=== PATIENT | male | born 1995 | race African-American/Black ===

== ENCOUNTER 2024-06-16 10:55 | Emergency (ER) | payer SELFPAY ==
--- NOTE | 2024-06-16 11:15 | EDPHYS ---
Physician Documentation [facility] Name: Eren Miller Age: 29 yrs Sex: Male : 1995 Arrival Date: 06/16/2024 Time: 10:55 Bed IW10 Private MD: ED Physician Goyo Solorio HPI: 06/16 11:16 This 29 yrs old Black Male presents to ER via Ambulatory with complaints of Ear Pain. ec2 11:16 Patient arrives today for left ear pain. Patient with increasing left ear swelling ec2 within the canal as well as pain with Q-tip insertion. No fevers or chills, no nausea or vomiting, no medication allergies.. Historical: - Allergies: 11:13 No Known Allergies; db - PMHx: 11:13 None; db - Immunization history:: Adult Immunizations unknown. - Infectious Disease History:: Denies. - Social history:: Smoking status: Patient denies any tobacco usage or history of. ROS: 11:16 Constitutional: as per hpi ec2 Exam: 11:16 Constitutional: GEN: NAD Head: atraumatic Eyes: EOMI Ears: Left ear with otitis ec2 externa, fluid behind the panic membrane CV: regular rate LUNGS: no respiratory distress ABD: non-distended SKIN: no evidence of rashes MSK: no evidence of trauma Vital Signs: 11:11 BP 133 / 88; Pulse 81; Resp 16; Temp 98.8(O); Pulse Ox 99% ; Weight 99.79 kg; Height 5 db ft. 0 in. ; 11:11 Body Mass Index 42.97 (99.79 kg, 152.4 cm) db MDM: 11:14 Patient medically screened. ec2 11:16 Data reviewed: vital signs. ED course: Patient arrives today for left ear pain. ec2 Examination remarkable for ear findings as above. Will treat for otitis media and externa. Return precautions given.. Administered Medications: No medications were administered Disposition Summary: 06/16/24 11:14 Discharge Ordered Notes: Location: Home ec2 Condition: Stable ec2 Diagnosis - Acute suppurative otitis media ec2 - Other otitis externa, left ear ec2 Followup: ec2 - With: Private Physician - When: - Reason: Re-evaluation by your physician Discharge Instructions: - Discharge Summary Sheet ec2 - Otitis Media, Adult, Soml-rb-[id number] ec2 Forms: - Medication Reconciliation Form ec2 - Antibiotic Education ec2 - Prescription Opioid Use ec2 - Patient Portal Instructions ec2 - Leadership Thank You Letter ec2 Prescriptions: - ofloxacin 0.3 % Otic drops - instill 5 drop OTIC route daily for 7 days; 7 drop; Refills: 0, Product ec2 Selection Permitted - Augmentin 875-125 mg Oral tablet - take 1 tablet ORAL route every 12 hours for 7 days; 14 tablet; Refills: 0, ec2 Product Selection Permitted Signatures: Joleen Chester RN RN db Goyo Solorio MD MD ec2
--- NOTE | 2024-06-16 11:15 | ER ---
Nurse's Notes [facility] Name: Eren Miller Age: 29 yrs Sex: Male : 1995 Arrival Date: 06/16/2024 Time: 10:55 Bed IW10 Private MD: Diagnosis: Acute suppurative otitis media;Other otitis externa, left ear Presentation: 06/16 11:11 Chief complaint: Patient states: LEFT EAR PAIN STARTED HURTING ON SATURDAY TODAY EAR IS db "SWOLLEN SHUT". Coronavirus screen: Client denies travel out of the [place] in the last 14 days. At this time, the client does not indicate any symptoms associated with coronavirus-19. Ebola Screen: Patient negative for fever greater than or equal to 101.5 degrees Fahrenheit, and additional compatible Ebola Virus Disease symptoms Patient denies exposure to infectious person. Patient denies travel to an Ebola-affected area in the 21 days before illness onset. No symptoms or risks identified at this time. Initial Sepsis Screen: Does the patient meet any 2 criteria? No. Patient's initial sepsis screen is negative. Does the patient have a suspected source of infection? No. Patient's initial sepsis screen is negative. Risk Assessment: Do you want to hurt yourself or someone else? Patient reports no desire to harm self or others. Onset of symptoms was June 13, 2024. 11:11 Method Of Arrival: Ambulatory db 11:11 Acuity: BRANDEN 4 db Triage Assessment: 11:13 General: Appears in no apparent distress. comfortable, Behavior is calm, cooperative. db Pain: Complains of pain in left ear. EENT: Tympanic membrane reddened on left ear. Respiratory: Airway is patent Respiratory effort is even, unlabored, Respiratory pattern is regular, symmetrical. Historical: - Allergies: 11:13 No Known Allergies; db - PMHx: 11:13 None; db - Immunization history:: Adult Immunizations unknown. - Infectious Disease History:: Denies. - Social history:: Smoking status: Patient denies any tobacco usage or history of. Screenin:26 [facility] ED Fall Risk Assessment (Adult) History of falling in the last 3 months, db including since admission No falls in past 3 months (0 pts) Confusion or Disorientation No (0 pts) Intoxicated or Sedated No (0 pts) Impaired Gait No (0 pts) Mobility Assist Device Used No (0 pt) Altered Elimination No (0 pt) Score/Fall Risk Level 0 - 2 = Low Risk Oriented to surroundings, Maintained a safe environment. Abuse screen: Denies threats or abuse. Denies injuries from another. Nutritional screening: No deficits noted. Tuberculosis screening: No symptoms or risk factors identified. Assessment: 11:26 Reassessment: Patient appears in no apparent distress at this time. Patient and/or db family updated on plan of care and expected duration. Pain level reassessed. Patient is alert, oriented x 3, equal unlabored respirations, skin warm/dry/pink. General: Appears in no apparent distress. comfortable, Behavior is calm, cooperative. Vital Signs: 11:11 BP 133 / 88; Pulse 81; Resp 16; Temp 98.8(O); Pulse Ox 99% ; Weight 99.79 kg; Height 5 db ft. 0 in. ; 11:11 Body Mass Index 42.97 (99.79 kg, 152.4 cm) db ED Course: 10:57 Patient arrived in ED. mr 10:57 Goyo Solorio MD is Attending Physician. ec2 11:13 Triage completed. db 11:13 Arm band placed on Patient placed in waiting room. db 11:26 Patient has correct armband on for positive identification. Bed in low position. Call db light in reach. Side rails up X 1. Provided Education on: DISCHARGE. Warm blanket given. 11:26 No provider procedures requiring assistance completed. Patient did not have IV access db during this emergency room visit. Administered Medications: No medications were administered Medication: 11: VIS not applicable for this client. db Outcome: 11:14 Discharge ordered by . ec2 11:26 Discharged to home ambulatory, db 11:26 Condition: stable 11:26 Discharge instructions given to patient, Instructed on discharge instructions, follow up and referral plans. Prescriptions given X 2, 11:27 Patient left the ED. db Signatures: Snehal Sosa, Joleen Lazo, REJI RN db Goyo Solorio MD MD ec2
[2024-06-16 11:31] VITALS: BP 133/88; TEMP 98.8; O2SAT 99
== END 2024-06-16 11:27 | disposition home or self-care (01) ==
LOC: ER 10:55
DX: H66.002 Acute suppurative otitis media without spontaneous rupture of ear drum, left ear (principal); H60.8X2 Other otitis externa, left ear

== ENCOUNTER 2024-09-23 08:03 | Emergency (ER) | payer SELFPAY ==
[2024-09-23] MEDS ORDERED: LEVALBUTEROL 1.25 MG/3 ML NEB ONE (08:27)
[2024-09-23] MEDS ORDERED: METHYLPREDNISOLONE 125 MG INJ ONE (08:27)
--- NOTE | 2024-09-23 10:06 | RAD REPORT ---
EXAMINATION: ONE VIEW CHEST XR CLINICAL INDICATION: Male, 29 years old.,Cough;Dyspnea TECHNIQUE: Frontal chest projection is submitted. Examination is limited by patient positioning and t echnique. COMPARISON: No prior exam. FINDINGS: The lungs are well inflated and clear. No pneumothorax or sizable effusion. The heart is normal in s ize. Mediastinal contours are unremarkable. IMPRESSION: No acute intrathoracic abnormalities.
--- NOTE | 2024-09-23 10:30 | EDPHYS ---
Physician Documentation [facility] Name: Eren Miller Age: 29 yrs Sex: Female : 1995 Arrival Date: 09/23/2024 Time: 08:03 Bed 14 Private MD: ED Physician Александр Williamson HPI: 09/23 09:28 This 29 yrs old Black Male presents to ER via Ambulatory with complaints of Shortness rn Of Breath. 10:26 The patient has shortness of breath at rest, with light activity. Onset: The rn symptoms/episode began/occurred yesterday. Duration: The symptoms are intermittent. The patient's shortness of breath is aggravated by coughing, light activity. Severity of symptoms: At their worst the symptoms were mild in the emergency department the symptoms are unchanged. The patient has experienced similar episodes in the past. Patient reports multiple family members sick at home with cough and congestion as well as fever and chills. She started to get sick 2 days ago and reports mild shortness of breath. Patient reports history of asthma.. Historical: - Allergies: 08:13 Apple; ll1 08:13 oatmeal; ll1 - PMHx: 08:13 Asthma; ll1 - PSHx: 08:13 section; Cholecystectomy; ll1 - Immunization history:: Adult Immunizations up to date. - Infectious Disease History:: Denies. - Social history:: Smoking status: Patient denies any tobacco usage or history of. - Family history:: not pertinent. - Hospitalizations: : No recent hospitalization is reported. ROS: 10:26 Constitutional: Positive for subjective fever and chills ENT: Positive for nasal rn congestion Neck: Negative for injury, pain, and swelling, Cardiovascular: Negative for chest pain, palpitations, and edema, Respiratory: Positive for cough and mild shortness of breath Abdomen/GI: Negative for abdominal pain, nausea, vomiting, diarrhea, and constipation, MS/Extremity: Negative for injury and deformity, Skin: Negative for injury, rash, and discoloration, Neuro: Negative for headache, weakness, numbness, tingling, and seizure, Exam: 10:26 Constitutional: This is a well developed, well nourished patient who is awake, alert, rn and in no acute distress. Head/Face: Normocephalic, atraumatic. ENT: No stridor Cardiovascular: Regular rate and rhythm. No pulse deficits. Respiratory: No retractions. Faint upper lobe wheezing. Vital Signs: 08:14 BP 117 / 90; Pulse 92; Resp 18; Temp 97.3; Pulse Ox 99% on R/A; Weight 99.79 kg; Height ll1 5 ft. 0 in. ; Pain 8/10; 10:20 BP 122 / 80; Pulse 80; Resp 17; Pulse Ox 99% on R/A; rs5 08:14 Body Mass Index 42.97 (99.79 kg, 152.4 cm) ll1 08:14 Pain Scale: Adult ll1 MDM: 08:07 Medical Screening Exam initiated rn 10:26 Differential diagnosis: asthma, pneumonia, Pneumothorax pulmonary edema. Data reviewed: rn vital signs, nurses notes, lab test result(s), radiologic studies, plain films, and as a result, I will discharge patient. Counseling: I had a detailed discussion with the patient and/or guardian regarding the historical points, exam findings, and any diagnostic results supporting the discharge/admit diagnosis, lab results, radiology results, the need for outpatient follow up, to return to the emergency department if symptoms worsen or persist or if there are any questions or concerns that arise at home. Response to treatment: the patient's symptoms have markedly improved after treatment, and as a result, I will discharge patient. Special discussion: I discussed with the patient/guardian in detail that at this point there is no indication for admission to the hospital. It is understood, however, that if the symptoms persist or worsen the patient needs to return immediately for re-evaluation. 09/23 08:18 Order name: Flu; Complete Time: rn 09/23 08:18 Order name: RSV; Complete Time: rn 09/23 08:18 Order name: XRAY Chest (1 view); Complete Time: 10:15 rn Administered Medications: 08:30 Drug: MethylPREDNISolone Sodium Succinate IM 125 mg IM once Route: IM; Site: left rs5 deltoid; 09:00 Follow up: Response: No adverse reaction rs5 08:30 Drug: Levalbuterol Inhalation 1.25 mg Inhalation once Route: Inhalation; rs5 09:00 Follow up: Response: No adverse reaction rs5 Disposition Summary: 09/23/24 10:29 Discharge Ordered Notes: Location: Home rn Problem: new rn Symptoms: have improved rn Condition: Stable rn Diagnosis - Acute upper respiratory infection, unspecified rn - Mild persistent asthma with (acute) exacerbation rn Followup: rn - With: Private Physician - When: As needed - Reason: Recheck today's complaints, Re-evaluation by your physician Discharge Instructions: - Discharge Summary Sheet rn - Asthma, Adult rn - Upper Respiratory Infection, Adult rn Forms: - Medication Reconciliation Form rn - Antibiotic electrical engineering intern - Prescription Opioid Use rn - Patient Portal Instructions rn - Leadership Thank You Letter rn Prescriptions: - Prednisone 20 mg Oral Tablet - take 3 tablets ORAL route once daily for 5 days; 15 tablet; Refills: 0, Product rn Selection Permitted Signatures: Dispatcher [employer] EDMS Александр Williamson MD MD rn Lewis, Lynsay RN RN ll1 Miguel Pelaez RN RN rs5 Corrections: (The following items were deleted from the chart) 08:18 08:18 Influenza Screen (A \T\ B)+BA.LAB.BRZ ordered. EDMS EDMS 08:18 08:18 Respiratory Syncytial Virus Ag+BA.LAB.BRZ ordered. EDMS EDMS 08:18 08:18 Chest Single View+RAD.RAD.BRZ ordered. EDMS EDMS
--- NOTE | 2024-09-23 10:30 | ER ---
Nurse's Notes [facility] Name: Eren Miller Age: 29 yrs Sex: Female : 1995 Arrival Date: 09/23/2024 Time: 08:03 Bed 14 Private MD: Diagnosis: Acute upper respiratory infection, unspecified;Mild persistent asthma with (acute) exacerbation Presentation: 09/23 08:14 Chief complaint: Patient states: Cough, SOB, R sided neck pain for 3 days. tested ll1 positive for RSV. Coronavirus screen: Client denies travel out of the [place] in the last 14 days. congestion, cough unrelated to allergies, difficulty breathing, fatigue, headache, muscle pain, Client presents with at least one sign or symptom that may indicate coronavirus-19. Standard/surgical mask placed on the client. Ebola Screen: Patient denies travel to an Ebola-affected area in the 21 days before illness onset. Initial Sepsis Screen: Does the patient meet any 2 criteria? No. Patient's initial sepsis screen is negative. Does the patient have a suspected source of infection? No. Patient's initial sepsis screen is negative. Risk Assessment: Do you want to hurt yourself or someone else? Patient reports no desire to harm self or others. Onset of symptoms was September 21, 2024. 08:14 Method Of Arrival: Ambulatory ll1 08:14 Acuity: BRANDEN 3 ll1 Triage Assessment: 08:10 General: Appears in no apparent distress. uncomfortable. General: Behavior is calm, rs5 cooperative. Respiratory: Respiratory: Onset: The symptoms/episode began/occurred this morning. 08:10 Respiratory: Reports shortness of breath. rs5 08:14 General: Appears uncomfortable, Behavior is calm, cooperative, appropriate for age, ll1 Reports feeling ill for fatigue for. Pain: Complains of pain in R side of neck Quality of pain is described as aching. Neuro: Reports headache weakness. Respiratory: Reports shortness of breath cough that is. Musculoskeletal: Reports pain in back. Historical: - Allergies: 08:13 Apple; ll1 08:13 oatmeal; ll1 - PMHx: 08:13 Asthma; ll1 - PSHx: 08:13 section; Cholecystectomy; ll1 - Immunization history:: Adult Immunizations up to date. - Infectious Disease History:: Denies. - Social history:: Smoking status: Patient denies any tobacco usage or history of. - Family history:: not pertinent. - Hospitalizations: : No recent hospitalization is reported. Screenin:10 [facility] ED Fall Risk Assessment (Adult) History of falling in the last 3 months, rs5 including since admission No falls in past 3 months (0 pts) Confusion or Disorientation No (0 pts) Intoxicated or Sedated No (0 pts) Impaired Gait No (0 pts) Mobility Assist Device Used No (0 pt) Altered Elimination No (0 pt) Score/Fall Risk Level 0 - 2 = Low Risk Oriented to surroundings, Maintained a safe environment. Abuse screen: Denies threats or abuse. Nutritional screening: No deficits noted. Tuberculosis screening: No symptoms or risk factors identified. Assessment: 08:10 General: Appears uncomfortable, Behavior is cooperative. Pain: Complains of pain in rs5 neck Pain currently is 3 out of 10 on a pain scale. Quality of pain is described as aching, Is continuous. Neuro: Level of Consciousness is awake, alert, obeys commands, Oriented to person, place, time, situation. Cardiovascular: Rhythm is regular. Respiratory: Reports shortness of breath cough that is Airway is patent Respiratory effort is even, unlabored, Respiratory pattern is regular, symmetrical, Breath sounds are clear bilaterally. GI: Abdomen is round non-distended. : No signs and/or symptoms were reported regarding the genitourinary system. EENT: No signs and/or symptoms were reported regarding the EENT system. Derm: Skin is intact, Skin is pink, warm \T\ dry. Musculoskeletal: Range of motion: intact in all extremities. 08:46 Reassessment: Patient and/or family updated on plan of care and expected duration. Pain rs5 level reassessed. Patient is alert, oriented x 3, equal unlabored respirations, skin warm/dry/pink. 09:55 Reassessment: Patient and/or family updated on plan of care and expected duration. Pain rs5 level reassessed. Patient is alert, oriented x 3, equal unlabored respirations, skin warm/dry/pink. 10:40 Reassessment: Patient and/or family updated on plan of care and expected duration. Pain rs5 level reassessed. Patient is alert, oriented x 3, equal unlabored respirations, skin warm/dry/pink. Vital Signs: 08:14 BP 117 / 90; Pulse 92; Resp 18; Temp 97.3; Pulse Ox 99% on R/A; Weight 99.79 kg; Height ll1 5 ft. 0 in. ; Pain 8/10; 10:20 BP 122 / 80; Pulse 80; Resp 17; Pulse Ox 99% on R/A; rs5 08:14 Body Mass Index 42.97 (99.79 kg, 152.4 cm) ll1 08:14 Pain Scale: Adult ll1 ED Course: 08:06 Patient arrived in ED. mg5 08:07 Александр Williamson MD is Attending Physician. rn 08:07 Miguel Pelaez, REJI is Primary Nurse. rs5 08:10 Patient has correct armband on for positive identification. Placed in gown. Bed in low rs5 position. Call light in reach. Side rails up X2. 08:10 No provider procedures requiring assistance completed. rs5 08:13 Arm band placed on Patient placed in an exam room, on a stretcher. ll1 08:16 Triage completed. ll1 09:02 XRAY Chest (1 view) In Process Unspecified. EDMS 10:40 Patient did not have IV access during this emergency room visit. rs5 Administered Medications: 08:30 Drug: MethylPREDNISolone Sodium Succinate IM 125 mg IM once Route: IM; Site: left rs5 deltoid; 09:00 Follow up: Response: No adverse reaction rs5 08:30 Drug: Levalbuterol Inhalation 1.25 mg Inhalation once Route: Inhalation; rs5 09:00 Follow up: Response: No adverse reaction rs5 Medication: 09:00 VIS not applicable for this client. rs5 Outcome: 10:29 Discharge ordered by . rn 10:40 Discharged to home ambulatory, rs5 10:40 Condition: stable rs5 10:40 Discharge instructions given to patient, family, Instructed on discharge instructions, follow up and referral plans. medication usage, Demonstrated understanding of instructions, follow-up care, medications, Prescriptions given X 1, 10:44 Patient left the ED. rs5 Signatures: Dispatcher [employer] EDCO Александр Williamson MD MD rn Lewis, Lynsay, RN RN ll1 Miguel Pelaez, REJI MENDOZA rs5 Sandhya Doshi mg5
[2024-09-23 12:31] VITALS: BP 117/90; TEMP 97.3; O2SAT 99
== END 2024-09-23 10:44 | disposition home or self-care (01) ==
LOC: EDSEX 08:03 → ER 08:03
DX: J45.31 Mild persistent asthma with (acute) exacerbation (principal); J06.9 Acute upper respiratory infection, unspecified
CPT/HCPCS: 71045; 87804; 87807; 96372; 99284; J2919; J7614

== ENCOUNTER 2024-10-21 09:10 | Emergency (ER) | payer SELFPAY ==
[2024-10-21] MEDS ORDERED: ONDANSETRON 4 MG/2 ML VIAL ONE (09:32)
[2024-10-21] MEDS ORDERED: NA CHLORIDE 0.9% 500 ML ONE (09:37)
[2024-10-21 09:44] LABS: Absolute Eosinophils 0.2 K/uL (0-0.5); Absolute Lymphocytes (CBC) 1.9 K/uL (0.7-4.9); Absolute Monocytes 0.4 K/uL (0.1-1.3); Absolute Neutrophil 2.4 K/uL (1.8-8.0); Basophils % 0.7 % (0-1.3); Eosinophils % 3.6 % (0-4.4); Hematocrit 37.5 % (36.0-45.0); Hemoglobin 12.3 g/dL (12.0-15.0); MCH 25.5 pg (27.0-35.0); MCHC 32.7 g/dL (32.0-36.0); MCV 77.8 fL (80-100); MPV 8.3 fL (7.6-11.3); Monocytes % 7.3 % (3.3-12.3); Neutrophils % 48.4 % (41.7-73.7); Nucleated Red Blood Cells % 0.4 % (0-0); Platelets 234 thou/uL (152-406); RBC Red Blood Cell Count 4.82 M/uL (3.86-4.86); Red Cell Distribution Width 16.8 % (12.1-15.2)
[2024-10-21 09:52] LABS: Specific Gravity 1.012 (1.005-1.030)
[2024-10-21 09:52] LABS: Anion Gap 7.7 mEq/L (5.0-15.0); Potassium 3.7 mEq/L (3.5-5.1)
[2024-10-21 09:53] LABS: Specific Gravity 1.012 (1.005-1.030); Sqamous Epithelial <5 /HPF (None Seen); Urine Bacteria None Seen /HPF (<20); Urine Bilirubin NEGATIVE (Negative); Urine Blood Negative (Negative); Urine Clarity Turbid (Clear); Urine Color Light-Yellow (Yellow); Urine Culture Reflex Order NOT NEEDED; Urine Glucose NEGATIVE (Negative); Urine Ketones NEGATIVE (Negative); Urine Micro Reflex YN NO BILL MICROSCOPIC; Urine Nitrite NEGATIVE (Negative); Urine Protein NEGATIVE (Negative); Urine RBC <5 /HPF (None Seen); Urine Urobilinogen Normal (Normal); Urine WBC <5 /HPF (<5); Urine pH 7.5 (5.0-7.0)
--- NOTE | 2024-10-21 10:33 | EDPHYS ---
Physician Documentation [facility] Name: Eren Miller Age: 29 yrs Sex: Female : 1995 Arrival Date: 10/21/2024 Time: 09:10 Bed 13 Private MD: ED Physician Goyo Solorio HPI: 10/21 09:28 This 29 yrs old Female presents to ER via Ambulatory with complaints of Nausea/Vomiting.ec2 09:28 Patient arrives today for evaluation of nausea and vomiting. Reports she did have ec2 nausea and vomiting for the past 3 days. Reports that she been having decreased appetite as well. Reports she is possibly as she has had some faint positive test. Reports otherwise LMP was 1 month ago. Reports no urinary complaints.. 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 - Infectious Disease History:: Denies. - Social history:: Smoking status: Patient denies any tobacco usage or history of. ROS: 09:28 Constitutional: as per hpi ec2 Exam: :28 Constitutional: GEN: NAD Head: atraumatic Eyes: EOMI Ears: External ears are ec2 normal. CV: regular rate LUNGS: no respiratory distress ABD: non-distended, soft, nontender, guarding, not rigid SKIN: no evidence of rashes MSK: no evidence of trauma Vital Signs: 09:21 BP 111 / 88; Pulse 73; Resp 18 S; Temp 98.5(O); Pulse Ox 100% on R/A; Weight 104.33 kg aa5 (R); Height 5 ft. 0 in. (R); 10:18 BP 109 / 84; Pulse 60; Resp 18 S; Pulse Ox 99% on R/A; aa5 09:21 Body Mass Index 44.92 (104.33 kg, 152.4 cm) aa5 MDM: 09:19 Medical Screening Exam initiated ec2 09:28 Data reviewed: vital signs, nurses notes. ED course: Patient arrives today for ec2 evaluation of nausea and vomiting in setting of positive at-home test. Will obtain lab work, urine studies. Differential includes gastroenteritis, , UTI.. 10:32 ED course: hCG quantitative at 2, instructed to take vitamins and to follow-up ec2 with obstetrics., Patient without any abdominal pain, no vaginal bleeding to indicate ectopic or further workup at this time.. 10/21 09:20 Order name: CBC with Diff; Complete Time: 09:47 ec2 10/21 09:20 Order name: BMP; Complete Time: 09:53 ec2 10/21 09:20 Order name: Test, Urine; Complete Time: 09:53 ec2 10/21 09:20 Order name: UAM; Complete Time: 09:53 ec2 10/21 09:54 Order name: HCG-Quantitative; Complete Time: 10:18 ec2 10/21 09:20 Order name: IV; Complete Time: 09:34 ec2 Administered Medications: 09:44 Drug: NS 0.9% IV 500 ml 500 ml IV at 1 bolus once; to be given as a bolus over 30 aa5 minutes Volume: 500 ml; Route: IV; Rate: 1 bolus; Site: right antecubital; 10:18 Follow up: IV Status: Completed infusion; IV Intake: 500ml aa5 09:44 Drug: Ondansetron IVP 4 mg IVP once; over 2 minutes Route: IVP; Site: right antecubital;aa5 10:00 Follow up: Response: No adverse reaction aa5 Disposition Summary: 10/21/24 10:32 Discharge Ordered Condition: Stable ec2 Diagnosis - Nausea with vomiting, unspecified ec2 Followup: ec2 - With: Private Physician - When: - Reason: Re-evaluation by your physician Discharge Instructions: - Discharge Summary Sheet ec2 - Nausea and Vomiting, Adult ec2 Forms: - Medication Reconciliation Form ec2 - Antibiotic Education ec2 - Prescription Opioid Use ec2 - Patient Portal Instructions ec2 - Leadership Thank You Letter ec2 Prescriptions: - Zofran 4 mg Oral Tablet - take 1 tablet ORAL route every 12 hours As needed; 20 tablet; Refills: 0, ec2 Product Selection Permitted Signatures: Dispatcher [employer] Nina Nelson RN RN aa5 Goyo Solorio MD MD ec2 Corrections: (The following items were deleted from the chart) :20 09:20 CBC+H.LAB.BRZ ordered. EDMS EDMS 09:20 09:20 BASIC METABOLIC PANEL+C.LAB.BRZ ordered. EDMS EDMS :20 09:20 Test, Urine+UC.LAB.BRZ ordered. EDMS EDMS 09: 09:20 Urinalysis W/Microscopic+U.LAB.BRZ ordered. EDMS EDMS 09:54 09:54 QUANTITATIVE HCG+C.LAB.BRZ ordered. EDMS EDMS
--- NOTE | 2024-10-21 10:33 | ER ---
Nurse's Notes [facility] Name: Eren Miller Age: 29 yrs Sex: Female : 1995 Arrival Date: 10/21/2024 Time: 09:10 Bed 13 Private MD: Diagnosis: Nausea with vomiting, unspecified Presentation: 10/21 09:21 Chief complaint: Patient states: nausea and vomiting x 2-3 days ago, pt states "I got aa5 positive faint test for the past 3 or 4 days". Coronavirus screen: nausea, vomiting. Ebola Screen: Patient denies travel to an Ebola-affected area in the 21 days before illness onset. Initial Sepsis Screen: Does the patient meet any 2 criteria? No. Patient's initial sepsis screen is negative. Does the patient have a suspected source of infection? No. Patient's initial sepsis screen is negative. Risk Assessment: Do you want to hurt yourself or someone else? Patient reports no desire to harm self or others. Onset of symptoms was September 2024. 09:21 Acuity: BRANDEN 3 aa5 09:21 Method Of Arrival: Ambulatory aa5 [employer]: 09:25 LMP 09/23/2024, unknown aa5 Historical: - Allergies: 09:21 Apple; aa5 09:21 oatmeal; aa5 - PMHx: 09:21 Asthma; aa5 - PSHx: 09:21 section; Cholecystectomy; aa5 - Immunization history:: Adult Immunizations unknown. - Infectious Disease History:: Denies. - Social history:: Smoking status: Patient denies any tobacco usage or history of. Screenin:24 [facility] ED Fall Risk Assessment (Adult) History of falling in the last 3 months, aa5 including since admission No falls in past 3 months (0 pts) Confusion or Disorientation No (0 pts) Intoxicated or Sedated No (0 pts) Impaired Gait No (0 pts) Mobility Assist Device Used No (0 pt) Altered Elimination No (0 pt) Score/Fall Risk Level 0 - 2 = Low Risk Oriented to surroundings, Maintained a safe environment, Educated pt \\T\\ family on fall prevention, incl call for assistance when getting out of bed. Abuse screen: Denies threats or abuse. Nutritional screening: No deficits noted. Tuberculosis screening: No symptoms or risk factors identified. Assessment: 09:23 General: Appears comfortable, Behavior is calm, cooperative. Pain: Complains of pain in aa5 anterior aspect of right lateral abdomen Quality of pain is described as aching, Pain began 2-3 days ago. Is intermittent. Neuro: Level of Consciousness is awake, alert, obeys commands, Oriented to person, place, time, situation. Cardiovascular: Patient's skin is warm and dry. Respiratory: Airway is patent Respiratory effort is even, unlabored, Respiratory pattern is regular, symmetrical. GI: Abdomen is round non-distended, Bowel sounds present X 4 quads. Abd is soft and non tender X 4 quads. Reports nausea, vomiting, Patient currently denies diarrhea. : Denies burning with urination, inability to void, urinary frequency, urgency, vaginal bleeding. EENT: No signs and/or symptoms were reported regarding the EENT system. Derm: Skin is dry, Skin is normal, Skin temperature is warm. Musculoskeletal: Range of motion: intact in all extremities. 10:00 Neuro: Level of Consciousness is awake, alert, obeys commands, Oriented to person, aa5 place, time, situation. Respiratory: Airway is patent Respiratory effort is even, unlabored, Respiratory pattern is regular, symmetrical. Derm: Skin is dry, Skin is normal, Skin temperature is warm. 11:03 Reassessment: Patient appears in no apparent distress at this time. Patient and/or db family updated on plan of care and expected duration. Pain level reassessed. Patient is alert, oriented x 3, equal unlabored respirations, skin warm/dry/pink. Patient states feeling better. Vital Signs: 09:21 BP 111 / 88; Pulse 73; Resp 18 S; Temp 98.5(O); Pulse Ox 100% on R/A; Weight 104.33 kg aa5 (R); Height 5 ft. 0 in. (R); 10:18 BP 109 / 84; Pulse 60; Resp 18 S; Pulse Ox 99% on R/A; aa5 09:21 Body Mass Index 44.92 (104.33 kg, 152.4 cm) aa5 ED Course: 09:13 Patient arrived in ED. ra3 09:13 Goyo Solorio MD is Attending Physician. ec2 09:15 Arm band placed on Patient placed in an exam room, on a stretcher. aa5 09:15 Patient has correct armband on for positive identification. aa5 09:21 Nina Davidson, RN is Primary Nurse. aa5 09:23 Triage completed. aa5 09:30 Initial lab(s) drawn, by me, sent to lab. Inserted saline lock: 20 gauge in right aa5 antecubital area, using aseptic technique. Blood collected. Flushed with 10 mL NS. 09:42 Urine collected: clean catch specimen, clear. tm3 10:17 No provider procedures requiring assistance completed. aa5 11:03 Provided Education on: DISCHARGE AND FOLLOWUP. Pulse ox on. NIBP on. Warm blanket db given. Pillow given. 11:03 IV discontinued, intact, bleeding controlled, No redness/swelling at site. db Administered Medications: 09:44 Drug: NS 0.9% IV 500 ml 500 ml IV at 1 bolus once; to be given as a bolus over 30 aa5 minutes Volume: 500 ml; Route: IV; Rate: 1 bolus; Site: right antecubital; 10:18 Follow up: IV Status: Completed infusion; IV Intake: 500ml aa5 09:44 Drug: Ondansetron IVP 4 mg IVP once; over 2 minutes Route: IVP; Site: right antecubital;aa5 10:00 Follow up: Response: No adverse reaction aa5 Medication: 09:25 VIS not applicable for this client. aa5 Intake: 10:18 IV: 500ml; Total: 500ml. aa5 Outcome: 10:32 Discharge ordered by . ec2 11:03 Discharged to home with family, db 11:03 Condition: stable 11:03 Discharge instructions given to patient, family, Instructed on discharge instructions, follow up and referral plans. Prescriptions given X 1, 11:04 Patient left the ED. db Signatures: Brunosharon Milad tm3 Nina Davidson, RN RN aa5 Joleen Chester RN RN db Goyo Solorio MD MD ec2 Karime Marquez ra3 Corrections: (The following items were deleted from the chart) 10:17 09:25 LMP 09/23/2024, Verified, EDC 06/30/2025, Gestational age from LMP: 4 aa5 weeks 0 days aa5 10:19 10:18 Pulse 60bpm; Resp 18bpm; Spontaneous; Pulse Ox 99% RA; aa5 aa5
[2024-10-21 11:15] VITALS: TEMP 98.5
[2024-10-21 11:20] VITALS: BP 109/84; O2SAT 99
== END 2024-10-21 11:04 | disposition home or self-care (01) ==
LOC: ER 09:10
DX: R11.2 Nausea with vomiting, unspecified (principal); J45.909 Unspecified asthma, uncomplicated; Z91.018 Allergy to other foods
CPT/HCPCS: 36415; 80048; 81001; 81025; 84702; 85025; 96361; 96374; 99284; J2405; J7040